=== PATIENT | male | born 1970 | race Two or more races ===

== ENCOUNTER 2021-10-01 08:53 | Emergency (ER) | payer SELFPAY ==
[2021-10-01 09:05] VITALS: BP 130/82; PULSE 72; TEMP 98.3; BMI 23.0
[2021-10-01] MEDS ORDERED: DEXAMETHASONE LIQUID 0.5 MG/5 ML PO ONE (10:41)
[2021-10-01] MEDS ORDERED: DEXAMETHASONE SOD PHOSPHATE 10 MG/1 ML VIAL ONE (10:44)
[2021-10-01] MEDS ORDERED: FAMOTIDINE 20 MG TABLET PO ONE (10:56)
[2021-10-01] MEDS ORDERED: diphenhydrAMINE HCL 25 MG CAPSULE (FP) PO ONE ×2 (10:57→10:59)
[2021-10-01] MEDS ORDERED: FAMOTIDINE 20 MG TABLET ONE (11:00)
== END 2021-10-01 12:08 | disposition home or self-care (01) ==
LOC: JERFT 08:53
DX: T78.40XA Allergy, unspecified, initial encounter (principal)
CPT/HCPCS: 99283-25